=== PATIENT | female | born 1990 | race Caucasian/White ===

== ENCOUNTER 2016-03-25 21:44 | Emergency (ER) | payer MEDICAID ==
[2016-03-25] MEDS ORDERED: DEXAMETHASONE 10 MG/ML VIAL PO STA (22:25)
[2016-03-25] MEDS ORDERED: cefTRIAXone 1 GM VIAL IM STA (22:25)
[2016-03-25] MEDS ORDERED: ONDANSETRON ODT 4 MG TABLET TL STA (22:35)
[2016-03-25] MEDS ORDERED: ONDANSETRON ODT 4 MG TABLET ONE (22:38)
[2016-03-25] MEDS ORDERED: CHERRY SYRUP 10 ML UDC PO ONE (22:38)
[2016-03-25] MEDS ORDERED: DEXAMETHASONE 10 MG/ML VIAL ONE (22:38)
[2016-03-25] MEDS ORDERED: cefTRIAXone 1 GM VIAL ONE (22:38)
[2016-03-25] MEDS ORDERED: LIDOCAINE-MPF 1% 5 ML VIAL ONE (22:39)
== END 2016-03-25 23:26 | disposition home or self-care (01) ==
DX: H60.501 Unspecified acute noninfective otitis externa, right ear (principal)
CPT/HCPCS: 96372; 99283; A9270; Q0162